=== PATIENT | male | born 1960 | race Two or more races ===

== ENCOUNTER 2019-03-17 15:36 | Emergency (ER) | payer OTHER ==
[2019-03-17] MEDS ORDERED: Sodium Chloride 0.9% 10 ML Syringe FLUSH PRN (16:25)
--- NOTE | 2019-03-17 16:26 | EDM.PDOC ---
<Jessi Dotson - Last Filed: 03/17/19 16:19> ED HPI GENERAL MEDICAL PROBLEM - General Chief Complaint: Cardiovascular Problem Stated Complaint: CHEST PAIN/HIGH BP Time Seen by Provider: 03/17/19 15:56 Source of Information: Reports: Patient History Limitations: Reports: No Limitations - History of Present Illness INITIAL COMMENTS - FREE TEXT/NARRATIVE: Patient is a pleasant 59-year-old male that presented to the ED for complaints of high blood pressure and heart burn. Patient was seen earlier today at Dr. Lutz office for his inguinal hernia when his blood pressure was noted to be elevated. Dr. Lutz recommended patient go to [facility] to be evaluated. At the [facility] clinic the patient's blood pressure was recorded to be in the 210s systolically. He denies chest pain and pain in his arms or neck and jaw. He reports that for the past few days he has been experiencing centralized heart burn, which he rates as a 2/10 today. He also notes that for the past few months he has been feeling short of breath. He states he gets short of breath with walking across his yard, but he has not seen any providers for this issue. He denies a headache today, but reports that he has had a mild headache for the past few days, but not severe enough to take medication for. Onset: Today Duration: Hour(s): Location: Reports: Chest (central heartburn) Quality: Reports: Burning Severity: Mild Improves with: Reports: None Worsens with: Reports: None Chest Pain Score (Numeric/FACES): 2 - Related Data Allergies Allergy/AdvReac Type Severity Reaction Status Date / Time Penicillins Allergy Swelling Verified 03/17/19 15:56 Home Meds: Home Meds Gabapentin [Neurontin] 100 mg PO TID 03/17/19 [History] Ibuprofen 600 mg PO TID 03/17/19 [History] Meloxicam 15 mg PO DAILY 03/17/19 [History] hydroCHLOROthiazide [Hydrochlorothiazide] 12.5 mg PO BEDTIME #30 cap 03/17/19 [ Rx] Past Medical History HEENT History: Reports: Impaired Vision Cardiovascular History: Reports: None Respiratory History: Reports: SOB Genitourinary History: Reports: None Musculoskeletal History: Reports: None Neurological History: Reports: Concussion Psychiatric History: Reports: None Endocrine/Metabolic History: Reports: None Hematologic History: Reports: None Immunologic History: Reports: None Oncologic (Cancer) History: Reports: None Dermatologic History: Reports: None - Infectious Disease History Infectious Disease History: Reports: Hepatitis C - Past Surgical History HEENT Surgical History: Reports: Tonsillectomy GI Surgical History: Reports: Hernia, Abdominal Social & Family History - Tobacco Use Smoking Status *Q: Current Every Day Smoker Years of Tobacco use: 30 Packs/Tins Daily: 1 - Caffeine Use Caffeine Use: Reports: Coffee - Recreational Drug Use Recreational Drug Use: No ED ROS GENERAL - Review of Systems Review Of Systems: See Below Constitutional: Reports: No Symptoms. Denies: Fever, Chills, Weakness Respiratory: Reports: Shortness of Breath (chronic for past few months). Denies : Wheezing, Cough Cardiovascular: Reports: Chest Pain (centralized heartburn), Dyspnea on Exertion. Denies: Edema, Lightheadedness, Palpitations, Syncope GI/Abdominal: Reports: No Symptoms. Denies: Abdominal Pain, Diarrhea, Nausea, Vomiting Musculoskeletal: Reports: No Symptoms. Denies: Neck Pain, Arm Pain, Back Pain Skin: Reports: No Symptoms Neurological: Reports: No Symptoms. Denies: Dizziness, Headache, Numbness, Tingling Psychiatric: Reports: No Symptoms Hematologic/Lymphatic: Reports: No Symptoms ED EXAM, GENERAL - Physical Exam Exam: See Below Exam Limited By: No Limitations General Appearance: Alert, WD/WN, No Apparent Distress Neck: Normal Inspection, Supple, Non-Tender, Full Range of Motion Respiratory/Chest: No Respiratory Distress, Lungs Clear, Normal Breath Sounds, Chest Non-Tender Cardiovascular: Normal Peripheral Pulses, Regular Rate, Rhythm, No Edema, No Murmur GI/Abdominal: Normal Bowel Sounds, Soft, Non-Tender, No Organomegaly, No Distention Back Exam: Normal Inspection, Full Range of Motion Extremities: Normal Inspection, Normal Range of Motion, Non-Tender, No Pedal Edema, Normal Capillary Refill Neurological: Alert, Oriented, Normal Cognition, No Motor/Sensory Deficits Psychiatric: Normal Affect, Normal Mood Skin Exam: Warm, Dry, Intact, No Rash Lymphatic: No Adenopathy Course - Vital Signs Last Recorded V/S: Last Vital Signs Temp 98.6 F 03/17/19 15:49 Pulse 85 03/17/19 15:49 Resp 16 03/17/19 15:49 BP 194/114 H 03/17/19 15:49 Pulse Ox 97 03/17/19 15:49 - Orders/Labs/Meds Orders: Active Orders 24 hr Category Date Time Status Cardiac Monitoring [RC] . DIRECTED Care 03/17/19 16:25 Active EKG Documentation Completion [RC] ASDIRECTED Care 03/17/19 16:13 Active Peripheral IV Care [RC] . DIRECTED Care 03/17/19 16:25 Active Chest 2V [CR] Stat Exams 03/17/19 16:25 Taken CBC WITH AUTO DIFF [HEME] Stat Lab 03/17/19 16:25 Results Sodium Chloride 0.9% [Saline Flush] Med 03/17/19 16:25 Active 10 ml FLUSH ASDIRECTED PRN Peripheral IV Insertion Adult [OM.PC] Stat Oth 03/17/19 16:25 Ordered EKG 12 Lead [EK] Stat Ther 03/17/19 16:12 Ordered Medication Orders Sodium Chloride (Saline Flush) 10 ml FLUSH ASDIRECTED PRN PRN Reason: Keep Vein Open Last Admin: 03/17/19 16:28 Dose: 10 ml Labs: Laboratory Tests 03/17/19 03/17/19 Range/Units 16:25 16:25 WBC 6.49 (4.23-9.07) K/mm3 RBC 5.36 (4.63-6.08) M/mm3 Hgb 12.6 L (13.7-17.5) gm/dl Hct 40.5 (40.1-51.0) % MCV 75.6 L (79.0-92.2) fl MCH 23.5 L (25.7-32.2) pg MCHC 31.1 L (32.2-35.5) g/dl RDW Std Deviation 49.3 H (35.1-43.9) fL Plt Count 277 (163-337) K/mm3 MPV 10.3 (9.4-12.3) fl Neut % (Auto) 78.9 H (34.0-67.9) % Lymph % (Auto) 13.4 L (21.8-53.1) % [place]gs % (Auto) 6.5 (5.3-12.2) % Eos % (Auto) 0.5 L (0.8-7.0) Baso % (Auto) 0.5 (0.1-1.2) % Neut # (Auto) 5.13 (1.78-5.38) K/mm3 Lymph # (Auto) 0.87 L (1.32-3.57) K/mm3 [place]gs # (Auto) 0.42 (0.30-0.82) K/mm3 Eos # (Auto) 0.03 L (0.04-0.54) K/mm3 Baso # (Auto) 0.03 (0.01-0.08) K/mm3 Sodium 140 (136-145) mEq/L Potassium 3.7 (3.5-5.1) mEq/L Chloride 101 (98-107) mEq/L Carbon Dioxide 24 (21-32) mEq/L Anion Gap 18.7 H (5-15) BUN 15 (7-18) mg/dL Creatinine 1.1 (0.7-1.3) mg/dL Est Cr Clr Drug Dosing 76.53 mL/min Estimated GFR (MDRD) > 60 (>60) mL/min BUN/Creatinine Ratio 13.6 L (14-18) Glucose 82 (74-106) mg/dL Calcium 9.0 (8.5-10.1) mg/dL Total Bilirubin 0.8 (0.2-1.0) mg/dL AST 78 H (15-37) U/L ALT 123 H (16-63) U/L Alkaline Phosphatase 55 (46-116) U/L Troponin I 0.044 (0.00-0.056) ng/mL Total Protein 7.9 (6.4-8.2) g/dl Albumin 4.3 (3.4-5.0) g/dl Globulin 3.6 gm/dL Albumin/Globulin Ratio 1.2 (1-2) Meds: Medications Generic Name Dose Route Start Last Admin Trade Name Freq PRN Reason Stop Dose Admin Sodium Chloride 10 ml 03/17/19 16:25 03/17/19 16:28 Saline Flush FLUSH 10 ml ASDIRECTED PRN Administration Keep Vein Open Departure - Departure Disposition: Home, Self-Care 01 Clinical Impression: Hypertension Qualifiers: Hypertension type: essential hypertension Qualified Code(s): I10 - Essential ( primary) hypertension Prescriptions: hydroCHLOROthiazide [Hydrochlorothiazide] 12.5 mg PO BEDTIME #30 cap Referrals: Beatrice Guallpa MD [Primary Care Provider] - 1 Week Forms: ED Department Discharge Additional Instructions: Take hydrochlorothiazide 12.5mg at night. Follow up with Dr Guallpa within a week. Please return if you are worse. Sepsis Event Note - Evaluation Sepsis Screening Result: No Definite Risk - Focused Exam Vital Signs: Vital Signs Temp Pulse Resp BP Pulse Ox 03/17/19 15:49 98.6 F 85 16 194/114 H 97 Date Exam was Performed: 03/17/19 Time Exam was Performed: 16:19 - My Orders Last 24 Hours: My Active Orders 03/17/19 16:12 EKG 12 Lead [EK] Stat 03/17/19 16:13 EKG Documentation Completion [RC] ASDIRECTED 03/17/19 16:25 Cardiac Monitoring [RC] . DIRECTED Peripheral IV Care [RC] . DIRECTED Chest 2V [CR] Stat CBC WITH AUTO DIFF [HEME] Stat Sodium Chloride 0.9% [Saline Flush] 10 ml FLUSH ASDIRECTED PRN Peripheral IV Insertion Adult [OM.PC] Stat - Assessment/Plan Last 24 Hours: My Active Orders 03/17/19 16:12 EKG 12 Lead [EK] Stat 03/17/19 16:13 EKG Documentation Completion [RC] ASDIRECTED 03/17/19 16:25 Cardiac Monitoring [RC] . DIRECTED Peripheral IV Care [RC] . DIRECTED Chest 2V [CR] Stat CBC WITH AUTO DIFF [HEME] Stat Sodium Chloride 0.9% [Saline Flush] 10 ml FLUSH ASDIRECTED PRN Peripheral IV Insertion Adult [OM.PC] Stat <Adithya Leslie - Last Filed: 03/17/19 18:01> Course - Re-Assessments/Exams Free Text/Narrative Re-Assessment/Exam: 03/17/19 17:54 I examined the patient myself and I agree with Jessi's assessment and plan. I ordered an IV saline lock, EKG, CXR, and labs. His EKS shows a NSR with no acute changes. His CXR shows nothing acute. His CBC looks good. His anion gap is elevated at 18.7. His AST is elevated at 78. His ALT is elevated at 123. His troponin is normal. His BP is better but he needs to be started on something for blood pressure. I will start him on some hydrochlorothiazide. Departure - Departure Time of Disposition: 18:00 Condition: Good Sepsis Event Note - Focused Exam Date Exam was Performed: 03/17/19 Time Exam was Performed: 17:54
--- NOTE | 2019-03-18 06:41 | CR ---
Chest: 2 views of the chest were obtained. Comparison: No prior chest imaging. Prominence of the right hilum is seen. Lungs are slightly hyperinflated suggesting emphysematous change. No acute parenchymal changes otherwise seen. Heart size is normal. Tortuous thoracic aorta is noted. Impression: 1. Prominence of the right hilum. Difficult to exclude right hilar mass. Contrast-enhanced chest CT recommended to further evaluate. 2. Possible emphysematous change. 3. Nothing acute is otherwise appreciated. Diagnostic code #9 This report was dictated in [place] Standard Time
== END 2019-03-17 18:14 | disposition home or self-care (01) ==
LOC: JD.ED 15:36
DX: I10 Essential (primary) hypertension (principal); R74.0 Nonspecific elevation of levels of transaminase and lactic acid dehydrogenase [LDH]; R74.8 Abnormal levels of other serum enzymes; F17.210 Nicotine dependence, cigarettes, uncomplicated; Z88.0 Allergy status to penicillin
CPT/HCPCS: 36415; 71046; 71046-26; 80053; 84484; 85025; 93005; 93010; 99283; 99285-25

== ENCOUNTER 2020-05-18 14:32 | Emergency (ER) | payer OTHER ==
[2020-05-18] MEDS ORDERED: Sodium Chloride 0.9% 1,000 ML IV SCH (15:00)
--- NOTE | 2020-05-18 15:02 | EDM.PDOC ---
ED HPI GENERAL MEDICAL PROBLEM - General Chief Complaint: Neuro Symptoms/Deficits Stated Complaint: CONFUSION/R SIDE DRAGGING Time Seen by Provider: 05/18/20 14:40 Source of Information: Reports: Patient History Limitations: Reports: No Limitations - History of Present Illness INITIAL COMMENTS - FREE TEXT/NARRATIVE: 60-year-old male of -[place] descent presents to the ED at the request of his coworkers indicating that his cognitive function is coming more impaired. A stroke alert was called on this patient. They have appreciated that his cognitive function is deteriorated over the last 2 months with extreme memory impairment and losing things like tools and keys in the workplace etc. They also appreciate that he seems to be a little weaker on his right side as compared to the left. Of note he is right-hand dominant. He appreciates that he has to be very careful walking up or down a flight of stairs he does not seem to have the strength in his right foot or leg to propel him up the stairs and will easily trip if he does not watch where he is putting his feet to walk. 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 He states he takes for 5 or 6 tablets of Motrin and that usually gets him through the day. Denies any recent or remote closed head injury. Denies nausea ,vomiting or change in visual pink. He feels perhaps that his balance is not quite as good as it should be either although he is never fallen down. He does not see a physician on a regular basis. [facility]. Patient reports no changes in his medications which includes meloxicam 15 mg once daily. Gabapentin 100 mg 3 times daily for neuropathy in his feet and the Motrin that he takes [id number] and hydrochlorothiazide daily for blood pressure control. Patient denies using alcohol or street drugs. No history of diabetes. Does have a [id number] history of smoking and is trying to quit at present. Onset: Gradual Onset Date: 03/13/20 (Ports that his cognitive function has been reportedly going downhill for over 2 months.) Duration: Week(s):, Constant, Getting Worse Location: Reports: Generalized (Appreciated by coworkers that his cognitive function is deteriorated substantially over the last 2 months. Patient is losing tools. He will go to one room and cannot remember what he was going there for. He has lost keys to vehicles. He cannot find his car in the parking lot at times. He apprec) Quality: Reports: Other (Denies any pain.) Severity: Moderate Improves with: Reports: None Worsens with: Reports: Other Context: Denies: Activity (Symptoms are worse if he is overly tired.), Exercise, Lifting, Sick Contact, Trauma, Other Treatments COMIC ILLUSTRATOR: Reports: Other (see below) (None.) - Related Data Allergies Allergy/AdvReac Type Severity Reaction Status Date / Time Penicillins Allergy Swelling Verified 05/18/20 14:45 Home Meds: Home Meds Meloxicam 15 mg PO DAILY 03/17/19 [History] dexAMETHasone [Dexamethasone] 4 mg PO Q6H #40 tablet 05/18/20 [Rx] Past Medical History HEENT History: Reports: Impaired Vision Cardiovascular History: Reports: None Respiratory History: Reports: SOB Genitourinary History: Reports: None Musculoskeletal History: Reports: None Neurological History: Reports: Concussion Psychiatric History: Reports: None Endocrine/Metabolic History: Reports: None Hematologic History: Reports: None Immunologic History: Reports: None Oncologic (Cancer) History: Reports: None Dermatologic History: Reports: None - Infectious Disease History Infectious Disease History: Reports: Hepatitis C - Past Surgical History HEENT Surgical History: Reports: Tonsillectomy GI Surgical History: Reports: Hernia, Abdominal (Right inguinal hernia raphe) Social & Family History - Tobacco Use Tobacco Use Status *Q: Current Every Day Tobacco User Years of Tobacco use: 30 Packs/Tins Daily: 1 - Caffeine Use Caffeine Use: Reports: Coffee - Recreational Drug Use Recreational Drug Use: No - Living Situation & Occupation Living situation: Reports: Single Occupation: Employed (States he was employed up until Friday of this week when he lost his job due to his cognitive impairment.) ED ROS GENERAL - Review of Systems Review Of Systems: See Below Constitutional: Reports: Malaise, Weakness, Fatigue. Denies: Fever, Chills, Decreased Appetite, Weight Loss HEENT: Reports: Glasses (He rarely wears them but is post to wear them for driving.) Respiratory: Reports: Shortness of Breath (Times on heavy exertion.), Cough, Sputum. Denies: Wheezing, Pleuritic Chest Pain (There is no brown sputum production.), Hemoptysis (Puffs every morning due to a chronic cigarette smoking.) Cardiovascular: Reports: Blood Pressure Problem, Dyspnea on Exertion. Denies: Chest Pain, Claudication, Edema, Lightheadedness, Orthopnea (To be hypertensive.), Palpitations (Sometimes.) Endocrine: Reports: Fatigue GI/Abdominal: Reports: Constipation (Prone to constipation.) : Reports: Frequency, Other Musculoskeletal: Reports: Back Pain (Nocturia usually x2.), Joint Pain (Sips neck and shoulders at times related to work.) Skin: Reports: No Symptoms Neurological: Reports: Confusion, Headache, Numbness (Daily.), Tingling (Both feet due to peripheral neuropathy.), Difficulty Walking, Weakness (3 she has weakness in his right leg and perhaps in his right arm.), Other (He appreciates trouble swallowing when the food reaches the back of his throat or saliva eats sometimes he seems to sit there and he has to be conscious about swallowing. No choking with coughing no pain with). Denies: Dizziness, Seizure, Syncope, Tremors, Trouble Speaking (Particular walking up or down a flight of stairs. Past to look at the stairs to make sure he is putting his feet in the appropriate place.), Change in Speech Psychiatric: Reports: No Symptoms Hematologic/Lymphatic: Reports: No Symptoms Immunologic: Reports: No Symptoms ED EXAM, NEURO - Physical Exam Exam: See Below Exam Limited By: No Limitations General Appearance: Alert, No Apparent Distress, Anxious (Mildly anxious.), Other (After about 45 minutes in the ED.) Eye Exam: Bilateral Eye: Normal Inspection (No scleral icterus or blepharal pallor. No nystagmus.), PERRL (No visual field losses on visual field evaluation) Ears: Normal TMs Nose: Normal Inspection Throat/Mouth: Normal Inspection, Normal Lips, Normal Teeth, Normal Oropharynx, Other (Uvula is in the midline. Phonation is normal.) Head Exam: Atraumatic, Normocephalic. No: Facial Swelling, Facial Tenderness Neck: Normal Inspection, Supple, Non-Tender, Full Range of Motion. No: Carotid Bruit, Lymphadenopathy (L), Lymphadenopathy (R), Thyromegaly Respiratory/Chest: Lungs Clear, Normal Breath Sounds, No Accessory Muscle Use, Respiratory Distress (Mild tachypnea I believe due to anxiety upon). No: Rales, Rhonchi, Wheezing Cardiovascular: Regular Rate, Rhythm, No Edema, No Gallop, No Murmur, No Rub. No: Normal Peripheral Pulses GI/Abdominal: Normal Bowel Sounds, Soft, Non-Tender, No Organomegaly, No Mass, Pelvis Stable, Other (Previous right inguinal hernia raphe.). No: Guarding, Rigid, Rebound (Male) Exam: No Hernia Neurological: Alert, Normal Mood/Affect, Normal Dorsiflexion, Normal Plantar Flexion, Oriented x 3, Babinski (Positive Babinski on bilateral examination.), Other (No sustained clonus. He has mild ataxia on [id number] assessment on the right side. Also slight ataxia appreciated [id number] evaluation on the right side. The strength in his lower extremities I would have to say is normal compared to the left side. There is a slight weakness of the right). No: CN II-XII Intact (Patient feels that there is slight difference in light touch to the right side of his face compared to the left feeling that it is less intense and perhaps a little numb.), Normal Reflexes DTR: 0: Achilles (R), Achilles (L), 1+: Bicep (R), Bicep (L), Patella (R), Patella (L) Back Exam: Normal Inspection, Full Range of Motion. No: CVA Tenderness (L), CVA Tenderness (R) Extremities: Normal Inspection, Normal Range of Motion, Non-Tender, No Pedal Edema Psychiatric: Normal Affect, Normal Mood, Anxious (Anxious initially but then he settled down after 20 minutes or so of being in the department.) Skin Exam: Warm, Dry, Intact, Normal Color, No Rash #1 Interpretation EKG Date: 05/18/20 Time: 14:56 Rhythm: NSR Rate (Beats/Min): 63 [place]: Normal P-Wave: Enlarged (Consider left atrial hypertrophy) QRS: Other (Initial poor R wave progression consider old anteroseptal myocardial infarction) ST-T: Other (Diffuse early repolarization pattern with no true ST segment elevation to indicate ischemia. T wave flattening AVL nonspecific finding) Course - Vital Signs Last Recorded V/S: Last Vital Signs Temp 36.7 C 05/18/20 14:41 Pulse 59 L 05/18/20 14:41 Resp 23 H 05/18/20 14:41 BP 149/109 H 05/18/20 14:41 Pulse Ox 97 05/18/20 14:41 - Orders/Labs/Meds Orders: Active Orders 24 hr Category Date Time Status EKG 12 Lead [EKG Documentation Completion] [RC] STAT Care 05/18/20 14:58 Active Sodium Chloride 0.9% [Normal Saline] 1,000 ml Med 05/18/20 15:00 Active IV ASDIRECTED Sodium Chloride 0.9% [Saline Flush] Med 05/18/20 17:30 Active 10 ml FLUSH ASDIRECTED Sodium Chloride 0.9% [Saline Flush] Med 05/18/20 16:00 Active 40 ml FLUSH ASDIRECTED Medication Orders Sodium Chloride (Normal Saline) 1,000 mls @ 100 mls/hr IV ASDIRECTED KARAN Last Admin: 05/18/20 15:09 Dose: 100 mls/hr Documented by: MELCHORBIL Sodium Chloride (Sodium Chloride 0.9% 10 Ml Syringe) 40 ml FLUSH ASDIRECTED KARAN Last Admin: 05/18/20 16:19 Dose: 40 ml Documented by: DARIAN Sodium Chloride (Sodium Chloride 0.9% 10 Ml Syringe) 10 ml FLUSH ASDIRECTED KARAN Last Admin: 05/18/20 17:39 Dose: 10 ml Documented by: FLORINA Labs: Laboratory Tests 05/18/20 05/18/20 05/18/20 Range/Units 14:48 15:00 15:00 WBC 6.32 (4.23-9.07) K/mm3 RBC 5.63 (4.63-6.08) M/mm3 Hgb 12.5 L (13.7-17.5) gm/dl Hct 41.6 (40.1-51.0) % MCV 73.9 L (79.0-92.2) fl MCH 22.2 L (25.7-32.2) pg MCHC 30.0 L (32.2-35.5) g/dl RDW Std Deviation 46.8 H (35.1-43.9) fL Plt Count 362 H D (163-337) K/mm3 MPV 10.0 (9.4-12.3) fl Neut % (Auto) 60.0 (34.0-67.9) % Lymph % (Auto) 28.2 (21.8-53.1) % [place] % (Auto) 7.9 (5.3-12.2) % Eos % (Auto) 3.2 (0.8-7.0) Baso % (Auto) 0.5 (0.1-1.2) % Neut # (Auto) 3.80 (1.78-5.38) K/mm3 Lymph # (Auto) 1.78 (1.32-3.57) K/mm3 [place] # (Auto) 0.50 (0.30-0.82) K/mm3 Eos # (Auto) 0.20 (0.04-0.54) K/mm3 Baso # (Auto) 0.03 (0.01-0.08) K/mm3 Manual Slide Review Abnormal smear ESR (0-15) mm/hr PT 10.8 (9.7-12.0) SECONDS INR 1.01 APTT 31.3 (21.7-31.4) SECONDS Sodium (136-145) mEq/L Potassium (3.5-5.1) mEq/L Chloride (98-107) mEq/L Carbon Dioxide (21-32) mEq/L Anion Gap (5-15) BUN (7-18) mg/dL Creatinine (0.7-1.3) mg/dL Est Cr Clr Drug Dosing mL/min Estimated GFR (MDRD) (>60) mL/min BUN/Creatinine Ratio (14-18) Glucose (74-106) mg/dL POC Glucose 89 (70-105) mg/dL Hemoglobin A1c ( - 5.6) % Calcium (8.5-10.1) mg/dL Magnesium (1.8-2.4) mg/dl Total Bilirubin (0.2-1.0) mg/dL AST (15-37) U/L ALT (16-63) U/L Alkaline Phosphatase (46-116) U/L Troponin I (0.00-0.056) ng/mL C-Reactive Protein (<1.0) mg/dL NT-Pro-B Natriuret Pep (0-125) pg/mL Total Protein (6.4-8.2) g/dl Albumin (3.4-5.0) g/dl Globulin gm/dL Albumin/Globulin Ratio (1-2) Cholesterol (<200) mg/dL LDL Cholesterol Direct (<100) mg/dL HDL Cholesterol (40-59) mg/dL TSH 3rd Generation (0.358-3.74) uIU/mL Urine Color (Yellow) Urine Appearance (Clear) Urine pH (5.0-8.0) Ur Specific [place] (1.005-1.030) Urine Protein (Negative) Urine Glucose (UA) (Negative) Urine Ketones (Negative) Urine Occult Blood (Negative) Urine Nitrite (Negative) Urine Bilirubin (Negative) Urine Urobilinogen (0.2-1.0) Ur Leukocyte Esterase (Negative) Urine RBC (0-5) /hpf Urine WBC (0-5) /hpf Ur Squamous Epith Cells (0-5) /hpf Urine Bacteria (FEW) /hpf Urine Mucus (FEW) /hpf Urine Opiates Screen (VPXQGV=660) Ur Buprenorphine Scrn (CUTOFF=10) Ur Oxycodone Screen (WEA7KY=433) Urine Methadone Screen (KSH5XD=039) Ur Propoxyphene Screen (TBMYFI=388) Ur Barbiturates Screen (ENWXTC=439) Ur Tricyclics Screen (IRKUEX=828) Ur Phencyclidine Scrn (CUTOFF=25) Ur Amphetamine Screen (OLRADU=198) U Methamphetamines Scrn (PVEHBZ=819) U Benzodiazepines Scrn (IDNGHM=498) U Cocaine Metab Screen (TISGOE=907) U Marijuana (THC) Screen (CUTOFF=50) 05/18/20 05/18/20 05/18/20 Range/Units 15:00 15:00 15:00 WBC (4.23-9.07) K/mm3 RBC (4.63-6.08) M/mm3 Hgb (13.7-17.5) gm/dl Hct (40.1-51.0) % MCV (79.0-92.2) fl MCH (25.7-32.2) pg MCHC (32.2-35.5) g/dl RDW Std Deviation (35.1-43.9) fL Plt Count (163-337) K/mm3 MPV (9.4-12.3) fl Neut % (Auto) (34.0-67.9) % Lymph % (Auto) (21.8-53.1) % [place] % (Auto) (5.3-12.2) % Eos % (Auto) (0.8-7.0) Baso % (Auto) (0.1-1.2) % Neut # (Auto) (1.78-5.38) K/mm3 Lymph # (Auto) (1.32-3.57) K/mm3 [place] # (Auto) (0.30-0.82) K/mm3 Eos # (Auto) (0.04-0.54) K/mm3 Baso # (Auto) (0.01-0.08) K/mm3 Manual Slide Review ESR 6 (0-15) mm/hr PT (9.7-12.0) SECONDS INR APTT (21.7-31.4) SECONDS Sodium 144 (136-145) mEq/L Potassium 4.2 (3.5-5.1) mEq/L Chloride 108 H (98-107) mEq/L Carbon Dioxide 25 (21-32) mEq/L Anion Gap 15.2 H (5-15) BUN 24 H (7-18) mg/dL Creatinine 1.3 (0.7-1.3) mg/dL Est Cr Clr Drug Dosing 62.79 mL/min Estimated GFR (MDRD) 57 (>60) mL/min BUN/Creatinine Ratio 18.5 H (14-18) Glucose 90 (74-106) mg/dL POC Glucose (70-105) mg/dL Hemoglobin A1c 6.3 H ( - 5.6) % Calcium 8.7 (8.5-10.1) mg/dL Magnesium 2.2 (1.8-2.4) mg/dl Total Bilirubin 0.5 (0.2-1.0) mg/dL AST 15 (15-37) U/L ALT 22 (16-63) U/L Alkaline Phosphatase 53 (46-116) U/L Troponin I < 0.017 (0.00-0.056) ng/mL C-Reactive Protein (<1.0) mg/dL NT-Pro-B Natriuret Pep (0-125) pg/mL Total Protein 7.7 (6.4-8.2) g/dl Albumin 4.1 (3.4-5.0) g/dl Globulin 3.6 gm/dL Albumin/Globulin Ratio 1.1 (1-2) Cholesterol 229 H (<200) mg/dL LDL Cholesterol Direct 165 H* (<100) mg/dL HDL Cholesterol 36.0 L (40-59) mg/dL TSH 3rd Generation 1.125 (0.358-3.74) uIU/mL Urine Color (Yellow) Urine Appearance (Clear) Urine pH (5.0-8.0) Ur Specific [place] (1.005-1.030) Urine Protein (Negative) Urine Glucose (UA) (Negative) Urine Ketones (Negative) Urine Occult Blood (Negative) Urine Nitrite (Negative) Urine Bilirubin (Negative) Urine Urobilinogen (0.2-1.0) Ur Leukocyte Esterase (Negative) Urine RBC (0-5) /hpf Urine WBC (0-5) /hpf Ur Squamous Epith Cells (0-5) /hpf Urine Bacteria (FEW) /hpf Urine Mucus (FEW) /hpf Urine Opiates Screen (BKNLJD=302) Ur Buprenorphine Scrn (CUTOFF=10) Ur Oxycodone Screen (YHG9TQ=493) Urine Methadone Screen (GVT5ZE=609) Ur Propoxyphene Screen (EIMWHF=059) Ur Barbiturates Screen (MFZZQM=889) Ur Tricyclics Screen (ULHZII=488) Ur Phencyclidine Scrn (CUTOFF=25) Ur Amphetamine Screen (ONTOCC=668) U Methamphetamines Scrn (BNFFYD=162) U Benzodiazepines Scrn (MEIUBM=538) U Cocaine Metab Screen (NCVHIE=801) U Marijuana (THC) Screen (CUTOFF=50) 05/18/20 05/18/20 05/18/20 Range/Units 15:00 15:00 15:13 WBC (4.23-9.07) K/mm3 RBC (4.63-6.08) M/mm3 Hgb (13.7-17.5) gm/dl Hct (40.1-51.0) % MCV (79.0-92.2) fl MCH (25.7-32.2) pg MCHC (32.2-35.5) g/dl RDW Std Deviation (35.1-43.9) fL Plt Count (163-337) K/mm3 MPV (9.4-12.3) fl Neut % (Auto) (34.0-67.9) % Lymph % (Auto) (21.8-53.1) % [place] % (Auto) (5.3-12.2) % Eos % (Auto) (0.8-7.0) Baso % (Auto) (0.1-1.2) % Neut # (Auto) (1.78-5.38) K/mm3 Lymph # (Auto) (1.32-3.57) K/mm3 [place] # (Auto) (0.30-0.82) K/mm3 Eos # (Auto) (0.04-0.54) K/mm3 Baso # (Auto) (0.01-0.08) K/mm3 Manual Slide Review ESR (0-15) mm/hr PT (9.7-12.0) SECONDS INR APTT (21.7-31.4) SECONDS Sodium (136-145) mEq/L Potassium (3.5-5.1) mEq/L Chloride (98-107) mEq/L Carbon Dioxide (21-32) mEq/L Anion Gap (5-15) BUN (7-18) mg/dL Creatinine (0.7-1.3) mg/dL Est Cr Clr Drug Dosing mL/min Estimated GFR (MDRD) (>60) mL/min BUN/Creatinine Ratio (14-18) Glucose (74-106) mg/dL POC Glucose (70-105) mg/dL Hemoglobin A1c ( - 5.6) % Calcium (8.5-10.1) mg/dL Magnesium (1.8-2.4) mg/dl Total Bilirubin (0.2-1.0) mg/dL AST (15-37) U/L ALT (16-63) U/L Alkaline Phosphatase (46-116) U/L Troponin I (0.00-0.056) ng/mL C-Reactive Protein 0.3 (<1.0) mg/dL NT-Pro-B Natriuret Pep 15 (0-125) pg/mL Total Protein (6.4-8.2) g/dl Albumin (3.4-5.0) g/dl Globulin gm/dL Albumin/Globulin Ratio (1-2) Cholesterol (<200) mg/dL LDL Cholesterol Direct (<100) mg/dL HDL Cholesterol (40-59) mg/dL TSH 3rd Generation (0.358-3.74) uIU/mL Urine Color Yellow (Yellow) Urine Appearance Clear (Clear) Urine pH 5.5 (5.0-8.0) Ur Specific [place] > or = 1.030 (1.005-1.030) Urine Protein Negative (Negative) Urine Glucose (UA) Negative (Negative) Urine Ketones Negative (Negative) Urine Occult Blood Negative (Negative) Urine Nitrite Negative (Negative) Urine Bilirubin Negative (Negative) Urine Urobilinogen 0.2 (0.2-1.0) Ur Leukocyte Esterase Negative (Negative) Urine RBC 0-5 (0-5) /hpf Urine WBC 0-5 (0-5) /hpf Ur Squamous Epith Cells 0-5 (0-5) /hpf Urine Bacteria Few (FEW) /hpf Urine Mucus Few (FEW) /hpf Urine Opiates Screen (TZZCVM=701) Ur Buprenorphine Scrn (CUTOFF=10) Ur Oxycodone Screen (DPL6EO=083) Urine Methadone Screen (QML2UJ=750) Ur Propoxyphene Screen (MVQKNS=384) Ur Barbiturates Screen (ARXMRX=501) Ur Tricyclics Screen (MTRAYJ=854) Ur Phencyclidine Scrn (CUTOFF=25) Ur Amphetamine Screen (BZXUAB=649) U Methamphetamines Scrn (GUQURG=811) U Benzodiazepines Scrn (HJWGYO=493) U Cocaine Metab Screen (IZENNP=461) U Marijuana (THC) Screen (CUTOFF=50) 05/18/20 Range/Units 15:13 WBC (4.23-9.07) K/mm3 RBC (4.63-6.08) M/mm3 Hgb (13.7-17.5) gm/dl Hct (40.1-51.0) % MCV (79.0-92.2) fl MCH (25.7-32.2) pg MCHC (32.2-35.5) g/dl RDW Std Deviation (35.1-43.9) fL Plt Count (163-337) K/mm3 MPV (9.4-12.3) fl Neut % (Auto) (34.0-67.9) % Lymph % (Auto) (21.8-53.1) % [place] % (Auto) (5.3-12.2) % Eos % (Auto) (0.8-7.0) Baso % (Auto) (0.1-1.2) % Neut # (Auto) (1.78-5.38) K/mm3 Lymph # (Auto) (1.32-3.57) K/mm3 [place] # (Auto) (0.30-0.82) K/mm3 Eos # (Auto) (0.04-0.54) K/mm3 Baso # (Auto) (0.01-0.08) K/mm3 Manual Slide Review ESR (0-15) mm/hr PT (9.7-12.0) SECONDS INR APTT (21.7-31.4) SECONDS Sodium (136-145) mEq/L Potassium (3.5-5.1) mEq/L Chloride (98-107) mEq/L Carbon Dioxide (21-32) mEq/L Anion Gap (5-15) BUN (7-18) mg/dL Creatinine (0.7-1.3) mg/dL Est Cr Clr Drug Dosing mL/min Estimated GFR (MDRD) (>60) mL/min BUN/Creatinine Ratio (14-18) Glucose (74-106) mg/dL POC Glucose (70-105) mg/dL Hemoglobin A1c ( - 5.6) % Calcium (8.5-10.1) mg/dL Magnesium (1.8-2.4) mg/dl Total Bilirubin (0.2-1.0) mg/dL AST (15-37) U/L ALT (16-63) U/L Alkaline Phosphatase (46-116) U/L Troponin I (0.00-0.056) ng/mL C-Reactive Protein (<1.0) mg/dL NT-Pro-B Natriuret Pep (0-125) pg/mL Total Protein (6.4-8.2) g/dl Albumin (3.4-5.0) g/dl Globulin gm/dL Albumin/Globulin Ratio (1-2) Cholesterol (<200) mg/dL LDL Cholesterol Direct (<100) mg/dL HDL Cholesterol (40-59) mg/dL TSH 3rd Generation (0.358-3.74) uIU/mL Urine Color (Yellow) Urine Appearance (Clear) Urine pH (5.0-8.0) Ur Specific [place] (1.005-1.030) Urine Protein (Negative) Urine Glucose (UA) (Negative) Urine Ketones (Negative) Urine Occult Blood (Negative) Urine Nitrite (Negative) Urine Bilirubin (Negative) Urine Urobilinogen (0.2-1.0) Ur Leukocyte Esterase (Negative) Urine RBC (0-5) /hpf Urine WBC (0-5) /hpf Ur Squamous Epith Cells (0-5) /hpf Urine Bacteria (FEW) /hpf Urine Mucus (FEW) /hpf Urine Opiates Screen Negative (OIDIQX=267) Ur Buprenorphine Scrn Negative (CUTOFF=10) Ur Oxycodone Screen Negative (GNY9IW=731) Urine Methadone Screen Negative (MJR2SY=333) Ur Propoxyphene Screen Negative (UZJKCQ=099) Ur Barbiturates Screen Negative (LDYTVV=899) Ur Tricyclics Screen Negative (ZXQGQB=698) Ur Phencyclidine Scrn Negative (CUTOFF=25) Ur Amphetamine Screen Negative (IBZKTX=800) U Methamphetamines Scrn Negative (EACAUH=500) U Benzodiazepines Scrn Negative (IPCNFO=137) U Cocaine Metab Screen Negative (GUSFRZ=776) U Marijuana (THC) Screen Negative (CUTOFF=50) Meds: Medications Generic Name Dose Route Start Last Admin Trade Name Freq PRN Reason Stop Dose Admin Sodium Chloride 1,000 mls @ 100 mls/hr 05/18/20 15:00 05/18/20 15:09 Normal Saline IV 100 mls/hr ASDIRECTED KARAN Administration Sodium Chloride 40 ml 05/18/20 16:00 05/18/20 16:19 Sodium Chloride 0.9% 10 Ml Syringe FLUSH 40 ml ASDIRECTED KARAN Administration Sodium Chloride 10 ml 05/18/20 17:30 05/18/20 17:39 Sodium Chloride 0.9% 10 Ml Syringe FLUSH 10 ml ASDIRECTED KARAN Administration Discontinued Medications Generic Name Dose Route Start Last Admin Trade Name Freq PRN Reason Stop Dose Admin Acetaminophen 975 mg 05/18/20 18:09 05/18/20 18:14 Acetaminophen 325 Mg Tab PO 05/18/20 18:10 Not Given ONETIME ONE Dexamethasone 10 mg 05/18/20 18:09 05/18/20 18:20 Dexamethasone 10 Mg/Ml Sdv IVPUSH 05/18/20 18:10 10 mg ONETIME ONE Administration Gadobenate Dimeglumine 20 ml 05/18/20 15:56 05/18/20 16:19 Gadobenate Dimeglumine 529 Mg/Ml 20 Ml Sdv IVPUSH 05/18/20 15:57 20 ml ONETIME ONE Administration Hydromorphone HCl 0.5 mg 05/18/20 18:14 05/18/20 18:20 Hydromorphone 0.5 Mg/0.5 Ml Syringe IVPUSH 05/18/20 18:15 0.5 mg ONETIME ONE Administration Iopamidol 100 ml 05/18/20 17:21 05/18/20 17:39 Iopamidol 612 Mg/Ml 100 Ml Bottle IVPUSH 05/18/20 17:22 80 ml ONETIME ONE Administration Ondansetron HCl 4 mg 05/18/20 18:14 05/18/20 18:20 Ondansetron 4 Mg/2 Ml Sdv IVPUSH 05/18/20 18:15 4 mg ONETIME ONE Administration - Radiology Interpretation Free Text/Narrative:: 60-year-old male of -[place] descent presents to the ED for evaluation of a possible stroke. The history suggest that he is appreciated increased problems remembering things being highly forgetful losing keys not able to find his car in a parking lot etc. He denies any remote head trauma or recent head trauma. He does not drink alcohol or take street drugs. Does not see a physician very often but has no documented history of hypertension. He denies any headaches nausea or vomiting. He is supposed to be wearing glasses but does not wear them often. He feels that his right leg does drag intermittently particularly at the end of the day when he is tired. He she appreciated that his right arm sometimes plays out easily as well and is not as strong as it used to be. He states he also appreciates occasional trouble swallowing with saliva and food stuffs just sitting in the back of his throat and having to be very aware of thinking about swallowing food. He does not appreciate any choking events. - Re-Assessments/Exams Free Text/Narrative Re-Assessment/Exam: 05/18/20 15:00: CT of the brain has been carried out without contrast as part of a stroke protocol. Comparison reveals multiple areas of low density are seen on both sides of the brain most prominent within the left side. Areas of diminished density are also seen within portions of the cerebellum. MRI study is recommended to further evaluate which should include gadolinium. Ventricles along the basal cisterns and sulci over the convexities are within normal limits. Bone window settings were reviewed which show no acute abnormality within the visualized paranasal or mastoid sinuses. No acute calvarial abnormality is appreciated. Assessment is multiple low-density findings on both sides of the brain and within the cerebellum. 05/18/20 15:44 Chest x-ray portable -one viiew feels hyperinflated lung field pink. There is prominence of the right hilar area with appreciation of both pulmonary arteries being prominent suggesting possible pulmonary hypertension. This is similar to prior exam and could represent stable lymph node or mass. Lungs are otherwise clear. Heart size and mediastinum are normal. Bony structures are grossly intact.the plan suggested by radiologist is to have an MR I of the brain done with and without contrast to help further delineate possible etiology of multiple areas of diminished density in both sides of the brain but worse on the left side. I have also asked the industrial service technician to do an MR a of the brain and neck to look for vascular occlusion. White count is normal at 6.32. The differential reveals 60% neutrophils and 28.2% lymphocytes on the auto differential. Hemoglobin is 12.5 with hematocrit of 41.6. MCV is low at 73.9 suggesting possible iron deficiency. Platelet count is high normal at 362,000. PT is 10.8 with an INR of 1.01. PTT is 31.3. Bedside glucose was 89. Hemoglobin A1c is 6.3. C-reactive protein 0.3. BNP is 15. Urinalysis was negative for any signs of infection the micro is pend 05/18/20 16:58 patient is now back from MRI of the brain and angiogram MRI or MRA of the brain and the neck. He is thirsty and did drink water with no problems swallowing and no drooling from the right side of his mouth which she is appreciated recently. MRI angiogram of the brain was obtained centered to the [place] of [place]. Findings reveal a dominant right vertebral artery is seen over the left side which is a normal variant. Basilar artery is patent. Both posterior cerebral arteries appear to be patent. Both distal internal carotid arteries are patent. Middle cerebral arteries and anterior cerebral arteries appear to be patent as well. No focal areas of stenosis or occlusion are appreciated. No discrete evidence of aneurysm is identified. Multiple low signal findings are seen within the brain. MRI of the brain with and without intravenous contrast has been completed. Findings revealed numerous enhancing ring lesions are seen in the area of abnormalities being noted on previous CT study. These abnormalities include the cerebellum, brainstem, and supratentorial regions. On the T2 flair sequence these areas show multiple areas of increased signal compatible with diffuse edema around these lesions. Largest lesion is in the supratentorial region which measures approximately 3.0 cm in the largest lesion within the cerebellum measures approximately 2.6 cm. Brainstem lesion measures 2.5 cm. Areas of edema cause mild localized mass-effect. Very minimal right-sided midline shift of several millimeters is noted. 05/18/20 18:12 MRI angiogram study of the neck was obtained. Right vertebral artery is dominant over the left side. No focal stenosis or occlusion identified. Left vertebral artery is smaller in size in the right side. No focal occlusion or stenosis is seen. Right current common carotid artery. Is patent with no focal stenosis or occlusion. Right internal carotid artery is patent with no focal stenosis or occlusion. Left common carotid artery is patent with no stenosis or occlusion. Left internal carotid artery patent with no focal stenosis or occlusion. Both subclavian arteries are patent. Brachiocephalic arteries are also patent. Impression no abnormalities i dentified on MRI angiogram study of the neck. 05/18/20 18:28 CT report of the chest with IV contrast is now available. There is a definitive enlarged lymph node noted within the right hilar region. Lymph node measures approximately 2.5 cm. 2 additional smaller lymph nodes are also seen within the right hilar region measuring 1.9 cm and 1.2 cm. Several mediastinal lymph nodes are seen believed to be within normal limits at this time. No left hilar adenopathy is appreciated. Ascending aorta is mildly enlarged with an AP dimension of 3.9 cm. Descending aorta at this level is 2.8 cm. No pericardial thickening is seen. 3 small low-density lesions are noted within the upper right lobe of the liver. Largest lesion has Hounsfield unit measurements of a cyst and measures 8 mm. Other findings are too small to accurately measure. Adrenal glands show no nodules. Otherwise visualized upper abdominal structures show no discrete abnormality. Emphysematous changes are appreciated in both lungs. Lungs show no nodule or mass. Emphysematous bullae are noted within both upper lungs in the apices bilaterally. These are subpleural in location. Bone window settings were reviewed which show no acute osseous findings. She is having increased headache. Possibly increased oncotic pressure from gadolinium utilized an MRI suite. Given Dilaudid 0.5 mg IV with Zofran 4 mg IV for pain relief. Initial dose of dexamethasone 10 mg which was given IV as well. Plan will be to discharge him on dexamethasone 4 mg 4 times daily. 10-day supply given. He is advised to follow-up with [facility] here in [place] to arrange for follow-up with [facility] probably in [place] for oncology assessment and confirmatory biopsy from right lung to determine if chemotherapy is an option. Patient is well aware of the diagnosis after our discussion today. Departure - Departure Time of Disposition: 19:03 Disposition: Home, Self-Care 01 Condition: Serious Clinical Impression: Metastatic cancer to brain, Primary cancer of right lung metastatic to other site - Discharge Information *PRESCRIPTION DRUG MONITORING PROGRAM REVIEWED*: Not Applicable *COPY OF PRESCRIPTION DRUG MONITORING REPORT IN PATIENT ZEE: Not Applicable Prescriptions: dexAMETHasone [Dexamethasone] 4 mg PO Q6H #40 tablet Instructions: Lung Cancer Referrals: Beatrice Guallpa MD [Primary Care Provider] - Forms: ED Department Discharge Additional Instructions: Evaluation in the emergency room today in regards to gradually worsening headaches and appreciating right face arm and leg weakness over the last perhaps 2 months. A stroke alert was called but there was no evidence of acute stroke occurring. CT scan of the brain revealed multiple abnormalities in both sides of your brain and the cerebellum which is the lower portion of the back of the brain which controls her balance. Subsequent MRI of the brain revealed no problems with the blood vessels supplying the brain or the neck. However they do reveal multiple metastatic lesions in both sides of the brain and the cerebellum compatible with cancer spread to the bone from another site. There is a large amount of inflammatory swelling around each 1 of these lesions which makes it look like ischemia or stroke. Chest x-ray suggested some swelling in the right hilar area which is where the blood vessels and lymph nodes anterior and exit the lung. CT scan of the chest confirms that there is one large lymph node the size of a golf ball in this area and 2 smaller lymph nodes suggesting primary cancer of the right lung. You were given a dose of dexamethasone 10 mg intravenously in the emergency room to help reduce swelling of the brain. You will need to take this in a pill form 4 mg 4 times daily ideally about every 6 hours for the next 10 days. You will need to arrange follow-up through the [facility] here in [place] who then should set you up with oncology i.e. cancer and a thoracic surgeon who may be able to biopsy the lesion in your right lung and determine what kind of cancer this is which in turn will determine what treatment options are available to you. Suggest Tylenol 650 mg every 4-6 hours necessary for headache relief versus Motrin. Motrin and dexamethasone may irritate the lining of your stomach and cause it to bleed as they are prone to causing an ulcer when mixed together. Sepsis Event Note (ED) - Evaluation Sepsis Screening Result: No Definite Risk - Focused Exam Vital Signs: Vital Signs Temp Pulse Resp BP Pulse Ox 05/18/20 14:41 36.7 C 59 L 23 H 149/109 H 97 - My Orders Last 24 Hours: My Active Orders 05/18/20 14:58 EKG 12 Lead [EKG Documentation Completion] [RC] STAT 05/18/20 15:00 Sodium Chloride 0.9% [Normal Saline] 1,000 ml IV ASDIRECTED 05/18/20 16:00 Sodium Chloride 0.9% [Saline Flush] 40 ml FLUSH ASDIRECTED 05/18/20 17:30 Sodium Chloride 0.9% [Saline Flush] 10 ml FLUSH ASDIRECTED - Assessment/Plan Last 24 Hours: My Active Orders 05/18/20 14:58 EKG 12 Lead [EKG Documentation Completion] [RC] STAT 05/18/20 15:00 Sodium Chloride 0.9% [Normal Saline] 1,000 ml IV ASDIRECTED 05/18/20 16:00 Sodium Chloride 0.9% [Saline Flush] 40 ml FLUSH ASDIRECTED 05/18/20 17:30 Sodium Chloride 0.9% [Saline Flush] 10 ml FLUSH ASDIRECTED
--- NOTE | 2020-05-18 15:12 | CT ---
Head CT Technique: Multiple axial sections through the brain were obtained. Intravenous contrast not utilized. Reconstructed coronal and sagittal images were obtained. Comparison: Multiple areas of low density are seen on both sides of the brain most prominent within the left side. Areas of diminished density are also seen within portions of the cerebellum. MRI study is recommended to further evaluate which should include gadolinium. Ventricles along the basal cisterns and sulci over the convexities are within normal limits. Bone window settings were reviewed which show no acute abnormality within the visualized paranasal or mastoid sinuses. No acute calvarial abnormality is appreciated. Impression: 1. Multiple low density findings on both sides of the brain and within the cerebellum. MRI without and with intravenous contrast is recommended to further evaluate. Diagnostic code #9
--- NOTE | 2020-05-18 15:34 | CR ---
Chest: Portable view of the chest was obtained. Comparison: Prior chest x-ray of 03/17/19. Prominence of the right hilum is seen. This is similar to prior exam and could represent stable lymph node or mass. Lungs otherwise are clear. Heart size and mediastinum are normal. Bony structures are grossly intact. Impression: 1. Prominence of the right hilum either due to adenopathy or mass. This finding is stable from prior exam. 2. Nothing acute is otherwise seen on portable chest x-ray. Diagnostic code #3
[2020-05-18 15:46] LABS: HEMOGLOBIN A1C 6.3 %
[2020-05-18] MEDS ORDERED: Gadobenate Dimeglumine 529 MG/ML 20 ML SDV IVPUSH ONE (15:56)
[2020-05-18] MEDS ORDERED: Sodium Chloride 0.9% 10 ML Syringe FLUSH SCH ×2 (16:00→17:30)
--- NOTE | 2020-05-18 16:47 | MR ---
CT angiogram of brain Technique: [id number] MR angiogram study was obtained centered to the [place] of [place]. Multiple MIP images were obtained. Comparison: Head CT performed earlier on the same day. Findings: Dominant right vertebral artery is seen over the left side which is a normal variant. Basilar artery is patent. Both posterior cerebral arteries appear to be patent. Both distal internal carotid arteries are patent. Middle cerebral arteries and anterior cerebral arteries appear to be patent. No focal areas of stenosis or occlusion are seen. No discrete evidence of aneurysm is seen. Multiple low signal findings are seen within the brain. Impression: 1. No abnormality is appreciated on MR angiogram study of the brain. 2. Multiple low signal finding seen within the brain. Diagnostic code #3
--- NOTE | 2020-05-18 16:57 | MR ---
MRI brain (without and with intravenous contrast) Technique: T1 sagittal; T2, T2 FLAIR, T1 and diffusion axial; T2 gradient echo axial and coronal; T1 coronal images were obtained. Postcontrast T1 axial and coronal images were obtained. Comparison: Prior head CT study performed earlier on the same day (2:50 PM). Findings: Numerous enhancing ring lesions are seen in the area of abnormalities being noted on previous CT study. These abnormalities include the cerebellum, brainstem, and supratentorial regions. On the T2 FLAIR sequence these areas show multiple areas of increased signal compatible with diffuse edema around these lesions. Largest lesion in the supratentorial region measures approximately 3.0 cm and largest lesion within the cerebellum measures approximately 2.6 cm. Brainstem lesion measures 2.5 cm. Areas of edema cause mild localized mass-effect. Very minimal right-sided midline shift of several millimeters is noted. Impression: 1. Multiple enhancing ring lesions within the cerebellum, brainstem and supratentorially. These all contain areas of edema. Findings are most likely due to multiple metastatic lesions. 2. Mild areas of mass-effect with minimal midline shift to the right side. Diagnostic code #9
--- NOTE | 2020-05-18 17:16 | MR ---
MR angiogram of neck Technique: Postcontrast MR angiogram study of the neck was obtained. Multiple MIP images were obtained. Comparison: No prior vessel imaging of the neck. Findings: Right vertebral artery: Dominant over the left side. No focal stenosis or occlusion. Left vertebral artery: Smaller in size than the right side. No focal occlusion or stenosis is seen. Right common carotid artery: Patent with no focal stenosis or occlusion. Right internal carotid artery: Patent with no focal stenosis or occlusion. Left common carotid artery: Patent with no stenosis or occlusion. Left internal carotid artery: Patent with no focal stenosis or occlusion. Both subclavian arteries are patent. Brachiocephalic arteries are also patent. Impression: 1. No abnormality is identified on MR angiogram study of the neck. Diagnostic code #1
[2020-05-18] MEDS ORDERED: Iopamidol 612 MG/ML 100 ML Bottle IVPUSH ONE (17:21)
[2020-05-18] MEDS ORDERED: Dexamethasone 10 MG/ML SDV IVPUSH ONE (18:09)
[2020-05-18] MEDS ORDERED: Acetaminophen 325 MG Tab PO ONE (18:09)
[2020-05-18] MEDS ORDERED: Ondansetron 4 MG/2 ML SDV IVPUSH ONE (18:14)
[2020-05-18] MEDS ORDERED: HYDROmorphone 0.5 MG/0.5 ML Syringe IVPUSH ONE (18:14)
--- NOTE | 2020-05-18 18:21 | CT ---
CT chest Technique: Multiple axial sections through the chest were obtained. Intravenous contrast was utilized. Reconstructed coronal and sagittal images were obtained. Comparison: Prior chest x-ray performed on the same day (2:48 PM). Findings: Enlarged lymph node is noted within the right hilar region. Lymph node measures approximately 2.5 cm. Two additional smaller lymph nodes are also seen within the right hilar region measuring 1.9 cm and 1.2 cm. Several mediastinal lymph nodes are seen believed to be within normal limits at this time. No left hilar adenopathy is seen. Ascending aorta is mildly enlarged with AP dimension of 3.9 cm. Descending aorta at this level is 2.8 cm. No pericardial thickening is seen. Three small low-density lesions are noted within the upper right lobe of the liver. Largest lesion has Hounsfield unit measurements of a cyst and measures 8 mm. Other findings are too small to accurately measure. Adrenal glands show no nodule. Other visualized upper abdominal structures show no discrete abnormality. Emphysematous change is seen within both lungs. Lungs show no nodule or mass. Emphysematous bullae are noted within both upper lungs in a subpleural location. Bone window settings were reviewed which show no acute osseous finding. Impression: 1. Three right hilar lymph nodes with largest measuring 2.5 cm. 2. Emphysematous change within both lungs with emphysematous bullae seen located within the subpleural location within both upper lungs. 3. Three small lesions within the liver. Largest abnormality has Hounsfield measurements of a cyst. Two smaller abnormalities cannot be measured due to their small size. 4. Ascending aorta is prominent in dimension measuring 3.9 cm. Diagnostic code #3
== END 2020-05-18 19:17 | disposition home or self-care (01) ==
LOC: JD.ED 14:32
DX: C34.91 Malignant neoplasm of unspecified part of right bronchus or lung (principal); C79.31 Secondary malignant neoplasm of brain; C79.89 Secondary malignant neoplasm of other specified sites; Z88.0 Allergy status to penicillin; Z79.899 Other long term (current) drug therapy; Z72.0 Tobacco use
CPT/HCPCS: 36415; 70450; 70544; 70548; 70553; 71045; 71260; 80053; 80306; 81001; 82465; 82962; 83036; 83718; 83721; 83735; 83880; 84443; 84484; 85025; 85610; 85652; 85730; 86140; 93005; 96374; 96375; 99285; A9577; J1100; J1170; J2405; J7030; Q9967; 93010